=== PATIENT | male | born 1945 | race Hispanic/Latino ===

== ENCOUNTER 2017-05-17 11:20 | Emergency (ER) | payer MEDICARE ==
[~2017-05-17] VITALS: Ht 177.8 cm; Wt 81.0 kg
[~2017-05-17 11:20] MED LIST: CIPROFLOXACN500 MG PO; LORTAB 7.57.5 MG PO; NO
[2017-05-17 15:19] LABS: HEMATOCRIT 44.2 % (39.0-50.0); HEMOGLOBIN 15.5 g/dl (14.0-18.0); IMMATURE GRANULOCYTES 0.2 % (0.0-1.0); MEAN CELL VOLUME 92.5 fL CALC (80.0-100.0); MEAN CORPUSCULAR HGB 32.4 pG CALC (26.0-32.0); MEAN CORPUSCULAR HGB CONC 35.1 g/L CALC (32.0-36.0); NEUT# 2.13 thou/uL (1.82-7.42); RED BLOOD COUNT 4.78 mill/uL (4.70-6.10); RED CELL DISTRI WIDTH 12.8 % (11.5-15.5)
[2017-05-17 15:27] LABS: ALBUMIN 4.5 g/dL (3.2-5.0); ALKALINE PHOSPHATASE 85 u/l (38-126); ANION GAP 17 (6-22 (CALC)); BILIRUBIN, TOTAL 0.4 mg/dL (0.0-1.4); BUN 8 mg/dL (8-23); BUN/CREATININE RATIO 14 (12-20 (CALC)); CALCIUM 9.3 mg/dL (8.4-10.2); CARBON DIOXIDE 22 mmol/l (22-30); CHLORIDE 102 mmol/l (95-108); CREATININE 0.6 mg/dL (0.7-1.3); GFR > 60 ML/MIN (>=60 (CALC)); GFR FOR AFR.AMER. > 60 ML/MIN (>=60 (CALC)); GLUCOSE 101 mg/dL (82-115); POTASSIUM 4.5 mmol/l (3.5-5.1); SGOT/AST 28 u/l (19-48); SGPT/ALT 31 u/l (11-66); SODIUM 136 mmol/l (137-146); TOTAL PROTEIN 7.7 g/dL (6.3-8.2)
[2017-05-17] MEDS ORDERED: VALTREX1 GM PO (16:03)
[2017-05-17] MEDS ORDERED: DOXYCYCL HYC100 MG PO (16:03)
[2017-05-17] MEDS ORDERED: MEDDOSEPAK PO (16:03)
[2017-05-17 16:11] VITALS: BP 138/83
== END 2017-05-17 16:15 | disposition home or self-care (01) ==
LOC: ED 11:20
PROVIDERS: Emergency Medicine
DX: L30.9 Dermatitis, unspecified (principal)

== ENCOUNTER 2024-01-05 18:45 | Emergency (ER) | payer MEDICARE ==
[2024-01-05] VITALS (8 sets, daily range): BP systolic 120–144; BP diastolic 64–92
[~2024-01-05] VITALS: Ht 175.3 cm; Wt 72.0 kg
[~2024-01-05 18:45] MED LIST changes: +DOXYCYCL HYC100 MG PO; +MEDDOSEPAK PO; +VALTREX1 GM PO
[2024-01-05] MEDS ORDERED: SODIUM CHLORIDE 0.9% 1,000 ML IV STA (19:10)
[2024-01-05 19:50] LABS: BASO% 0.6 % (0-3); EOS% 0.6 % (0-8); HEMATOCRIT 22.2 % (39.0-50.0); HEMOGLOBIN 7.3 g/dl (14.0-18.0); IMMATURE GRANULOCYTES 1.2 % (0.0-5.0); LYMPH% 42.9 % (15-41); MEAN CELL VOLUME 117.5 fL CALC (80.0-100.0); MEAN CORPUSCULAR HGB 38.6 pG CALC (26.0-32.0); MEAN CORPUSCULAR HGB CONC 32.9 g/dL CAL (32.0-36.0); MONO% 16.5 % (2-13); NEUT# 0.65 thou/uL (1.82-7.42); NEUT% 38.2 % (42-76); RED BLOOD COUNT 1.89 mill/uL (4.70-6.10); RED CELL DISTRI WIDTH 16.2 % (11.5-15.5)
[2024-01-05 19:55] LABS: POTASSIUM 3.7 mmol/l (3.5-5.1); TOTAL PROTEIN 7.6 g/dL (6.3-8.2)
[2024-01-05 20:09] LABS: ALBUMIN 3.3 g/dL (3.2-5.0); BILIRUBIN, TOTAL 0.6 mg/dL (0.2-1.3); CREATININE 6.6 mg/dL (0.7-1.3)
[2024-01-05] MEDS ORDERED: PIPERACILLIN Sodium-Tazobactam 3.375 GM in SODIUM CHLORIDE 0.9% 100 ML IV ONE (20:50)
[2024-01-05 21:44] LABS: URINE BILIRUBIN - DIPSTICK Negative (NEGATIVE); URINE BLOOD DIPSTICK Moderate (NEGATIVE); URINE GLUCOSE - DIPSTICK Negative (NEGATIVE); URINE KETONE Negative (NEGATIVE); URINE LEUK ESTERASE Negative (NEGATIVE); URINE NITRITE - DIPSTICK Negative (Negative); URINE PH 5.5 (4.5-8.0); URINE PROTEIN - DIPSTICK 100 mg/dL (NEG-TRACE); URINE SPECIFIC GRAVITY 1.025; URINE UROBILINOGEN - DIPSTICK 0.2 E.U./dL (0.2)
[2024-01-05 21:45] LABS: URINE COLOR Yellow; URINE RBC 0-2 RBC/hpf (0-5); URINE WBC 0-2 WBC/hpf (0-5)
[2024-01-05] MEDS ORDERED: SODIUM CHLORIDE 0.9% 1,000 ML IV ONE (22:25)
[2024-01-06 00:45] VITALS: BP 120/64
== END 2024-01-06 00:45 | disposition short-term general hospital (02) ==
LOC: ED 18:45
PROVIDERS: Nurse Practitioner Family
DX: N17.9 Acute kidney failure, unspecified (principal); K85.90 Acute pancreatitis without necrosis or infection, unspecified; E86.0 Dehydration; D61.818 Other pancytopenia; F17.200 Nicotine dependence, unspecified, uncomplicated; Z20.822 Contact with and (suspected) exposure to COVID-19